=== PATIENT | male | born 1945 | race Caucasian/White ===

== ENCOUNTER → 2017-06-30 | Outpatient (CLI) | payer OTHER ==
[~2017-06-30] MED LIST: ASPI81TA28 PO; ATOR-22 PO; FAMO20TA11 PO; KRIL1000 PO; LISI10TA PO; MULT-506 PO; SILD100T PO; TRAV0.00 OP
[2017-06-30 14:31] VITALS: BP 102/60; PULSE 79; TEMP 36.7; O2SAT 95
--- NOTE | 2017-06-30 15:32 | Radiation Oncology Follow-Up ---
Radiation Oncology Follow-Up Date of Visit Jun 30, 2017. Reason For Visit Follow-up post completion of salvage radiation Radiation Completion Date 03/04/17 Diagnosis (1) Prostate cancer Status: Acute Onset Date: 11/20/2011 Location: Both lobes of the prostate Histology Subtype: Adenocarcinoma Stage: ll (B) Permanent Comment: Rising PSA pretreatment PSA 8.55 Status post ultrasound-guided biopsies 11/20/2011 Adenocarcinoma the prostate Cally 3+3 and 3+4 Status post prostatectomy and lymph node dissection 01/05/2012 Curtis 4+3 with tertiary 5 Negative margins Stage pT2 [id number] Participation in PSMA protocol study Post prostatectomy rising PSA PSA 11/25/2016 at 0.33 Lupron 45 mg IM 01/05/2017 Status post completion of radiation therapy 03/04/2017. He received 7020 cGy utilizing VMAT. Last Edited By: Yissel Medina on Mar 15, 2017 15:56 History of Present Illness Mr. Loyd is without a family history of prostate cancer. The patient was found to have a slowly rising prostate-specific antigen. On 12/29/2005 his prostate-specific antigen was 3.49. On 04/13/2006 prostate-specific antigen was 3.08. On 01/22/2011 prostate-specific antigen was 7.91. On 05/05/2011 prostate-specific antigen was 8.55 and on 09/08/2011 prostate-specific antigen was 9.90. The patient was seen at [facility] on 11/20/2011. Dr. Roblero performed ultrasound-guided biopsies. Biopsies from the left lateral base was positive for a small focus of prostatic adenocarcinoma Curtis grade 3+3 involving less than 5% of the core sample. Biopsy of the left mid gland showed a small focus of prostatic adenocarcinoma Cally grade 3+3 involving less than 5% of one core sample. Biopsy of the left apex revealed prostatic adenocarcinoma Curtis grade 3+3 involving 10% of one core sample. Biopsy from the right lateral base revealed a small focus of prostatic adenocarcinoma Curtis grade 3+4 involving less than 5% of one core sample with evidence of perineural invasion. Biopsies from the right lateral mid gland was positive for prostatic adenocarcinoma Curtis grade 3+3 involving 20% of the core sample. Biopsy from the right apex was positive for adenocarcinoma Curtis grade 3+4 involving 20% of the core sample. Path# [id number]. After discussion of treatment options patient chose to proceed with radical robotic prostatectomy. Therefore on 01/05/2012 Dr. Roblero performed this procedure. A total of 4 lymph nodes were excised and all were benign. The prostate revealed adenocarcinoma in a dominant nodule with Curtis grade 4+3 and a tertiary pattern 5. The tumor extent was felt to be moderate involving both the left and right posterior gland. The tumor was confined to the prostate with no evidence of extra prostatic extension. The margins were negative. There was no invasion of the seminal vesicles. There was no lymphatic invasion identified. The AJCC pathologic staging was therefore pT2 pN0. Path# [id number]. The patient tolerated the procedure well. His initial post prostatectomy prostate-specific antigen was performed on 03/11/2012. This was undetectable at less than 0.02. On 10/03/2012 prostate-specific antigen was less than 0.02. On 05/09/2013 prostate-specific antigen was less than 0.02 and 12/25/2013 prostate-specific antigen was less than 0.02. On 01/10/2015 prostate-specific antigen was 0.1. This increased on 01/28/2016 to 0.2. On 09/03/2016 prostate- specific antigen was 0.29 and on 11/25/2016 the prostate-specific antigen was 0.33. With evidence of recurrence the patient was seen at [place] with a offered a research protocol B27117 (study of the clinical utility of PSMA imaging in the evaluation of men with prostate cancer). On 11/12/2016 patient underwent a whole body bone scan. This showed no evidence of metastatic disease. There was increased radiotracer uptake suggestive of degenerative changes in the bilateral shoulders, sternoclavicular joints, right wrist, both knees, left first carpal metacarpal joint, right first met at tarsal phalangeal joint and lumbar spine. CT scan of the abdomen and pelvis with contrast showed a heterogeneous appearance of the L4 vertebral body with areas of lytic changes and sclerosis consistent with degenerative changes. Patient was injected with 9 mCi of the [id number] radiotracer and one hour later underwent a PET/CT research scan. This showed no evidence to suggest a site of recurrent/residual disease. As noted on the prior CT scan the L4 vertebral body demonstrated heterogeneous mixed lytic and sclerotic appearance that appeared to be on the basis of a prominent Schmorl's node. There was a right sided predominantly exophytic thyroid nodule with differential consisting of a thyroid adenoma well- differentiated thyroid cancer. Biopsy was considered. In discussion with Dr. Roblero, his urologic surgeon he discussed observation versus salvage radiation. The patient at that time was interested in additional information on the role of salvage radiation. For this reason Dr. Barroso was kind enough to ask us to see Mr. Loyd. Patient went on to undergo hormone suppression followed by external beam radiation therapy. Radiation was completed 03/04/2017. He received 7020 cGy. Interim History He has been doing well over the past 4 months. After completion of his radiation he went to [place] and has been vacationing and doing well. Today he did complete an AUA score sheet and gave a score of 1. He completed and expanded prostate cancer index composite for clinical practice and gave a score of 0 of 12 and urinary incontinence symptoms. He gave a score of 0 12 and urinary irritation symptoms. He gives score of 0 12 and bowel symptoms. He gave a score of 2 of 12 in sexual symptoms. He gave a score of 1 of 12 and hormonal vitality symptoms. His total was 3 of 60. He did have a recheck PSA June 24, 2017. That was found to be less than 0.02. He has hot flashes which she feels are beginning to decrease over time. Allergies Coded Allergies: No Known Allergies (Unverified , 12/30/16) Home Medications Scheduled Aspirin (Aspirin Ec), 81 MG PO DAILY Atorvastatin (Lipitor), 1 TAB PO DAILY Famotidine (Pepcid), 20 MG PO DAILY Krill Oil (Krill Oil), 1 CAP PO DAILY Lisinopril (Prinivil), 1 TAB PO DAILY Multivitamin (Multivitamin), 1 TAB PO DAILY Travoprost (Travatan Z), 1 DROPS OP HS Scheduled PRN Sildenafil Citrate (Viagra), 1 TAB PO DAILY PRN for ed Review of Systems Gastrointestinal: Symptoms: WNL Oral: Symptoms: No Problems Respiratory: Symptoms: WNL Urinary: Symptoms: Nocturia Comments: nocturia 0-1x Skin: Symptoms: No Problems Additional Notes: He completed a distress management report and answer "no" to all questions. Physical Exam Vital Signs Date Time Temp Pulse Resp B/P (MAP) Pulse Ox O2 Delivery O2 Flow Rate FiO2 06/30/17 14:31 36.7 79 20 102/60 95 ECOG Performance Status: 0 General Appearance: no apparent distress Eyes: normal inspection, EOMI ENT: normal ENT inspection, hearing grossly normal Respiratory/Chest: lungs clear, no respiratory distress, no accessory muscle use Cardiovascular: regular rate, rhythm, no gallop, no murmur Abdomen: non tender, soft, no organomegaly Extremities: no pedal edema Neurologic/Psychiatric: no motor/sensory deficits, alert, normal mood/affect Skin: warm/dry Pain Management Patient Reports Pain: No Initial Pain Intensity: 0.0 Pain Management Plan He denies pain therefore requires no pain management. Laboratory Laboratory Results: were reviewed Laboratory Comments: Reviewed in the interim history. Pathology Pathology Results: were reviewed, and pertinent findings noted in HPI Imaging Imaging Studies: not applicable Assessment & Plan Plan: He was also seen today by Dr. Huerta. We have discussed continued follow- up. We have planned for a recheck PSA in November. He will call for an order to have this drawn. He will then follow-up with our office in November. He will continue follow-up with Dr. Barroso. Today we completed a cancer survivorship care plan. A copy of the document was given to the patient. He was given a survivorship booklet. He may call our office if he has any questions or concerns in the interim. Assessment & Plan (Attending) I agree with note created by Yissel Medina PA-C. I reviewed the patient's chart and information with her. I have examined and evaluated the patient. I reviewed relevant clinical information and answered the patient's and/or family' s questions. 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 I spent 20 minutes reviewing information, preparing the survivorship document, and completing this note. AK Total Time (Attending) In Follow-Up I spent 15 minutes examining and counseling the patient. HOT PRESS OPERATOR Copy To Cristobal Barroso III, M.D.
== END | disposition home or self-care (01) ==
LOC: C.ONC 14:08
PROVIDERS: ATTEND Physician Assistant Medical
DX: Z08 Encounter for follow-up examination after completed treatment for malignant neoplasm (principal); Z92.3 Personal history of irradiation; Z85.46 Personal history of malignant neoplasm of prostate